=== PATIENT | male | born 1995 | race Asian ===

== ENCOUNTER 2017-06-24 19:17 | Emergency (ER) | payer OTHER ==
[~2017-06-24] VITALS: Ht 172.7 cm; Wt 115.0 kg
[2017-06-24 19:20] VITALS: BP 146/87
== END 2017-06-24 20:12 | disposition home or self-care (01) ==
LOC: ED 20:06
DX: S90.02XA Contusion of left ankle, initial encounter (principal); W20.8XXA Other cause of strike by thrown, projected or falling object, initial encounter; Y93.89 Activity, other specified; Y92.098 Other place in other non-institutional residence as the place of occurrence of the external cause; Y99.8 Other external cause status
CPT/HCPCS: 99284